=== PATIENT | female | born 1960 | race Caucasian/White ===

== ENCOUNTER 2025-04-25 21:09 | Emergency (ER) | payer OTHER, SELFPAY ==
[2025-04-25 21:16] VITALS: BP 156/82
--- NOTE | 2025-04-25 22:12 | ED.MUSCINJ ---
HPI-Injury
General
Chief Complaint: Musculo-Skeletal Complaint
Source: patient
Exam Limitations: none
Time Seen by Provider: 04/25/25 22:06
Nursing documentation reviewed up to this point in time: agreed with
History of Present Illness-Injury
Is this injury a work related problem?: No
Is pt an associate of [facility]/[place]?: No
Initial Injury comments:
64-year-old female inversion injury to her right ankle felt a pop, no blood thinners
She believes she hit her head on the grass, no headache no loss conscious no neck pain no paresthesias no blood thinners no alcohol
Past History
Past History
ED Past Medical History: None
Social History
Tobacco: Non-smoker
Alcohol: None
Drug: None
Living: with family
Employment: Employed
Review of Systems
Review of Systems
All Other Systems: Not applicable
Constitutional: Denies fever or fatigue
EENT: Reports no symptoms
Respiratory: Reports no symptoms
Cardiac: Reports no symptoms
ABD/GI: Reports no symptoms
Musculoskeletal: Reports joint pain
Neurological: Denies dizzy, headache or numbness
Phy Exam
Physical Exam
Physical Exam:
Physical Exam
General: no apparent distress, not acutely ill
Neck: No posterior neck pain no tongue bite
Lungs: no acute respiratory distress. clear bilaterally
Neuro: alert and oriented. no focal neurological deficits
Skin: no rash
Psychiatric: well kept. interactive and cooperative
Extremities: Tender at the right lateral malleolus no fibular head tenderness base of the fifth nontender Achilles intact
Injury Course
Orders/Labs/Results
Orders:
Orders
04/25/25 21:23
Ankle, Right 3 view CR [CR Ankle - Right Min 3 Views *] Urgent
Comment:
Reason For Exam: right ankle injury
04/25/25 22:12
Crutches-Treatment ONCE
Splints/Slings/Crut- Treatment ONCE
Ibuprofen [Motrin] 600 mg PO NOW STA
Oxycodone/Acetaminophen [Percocet 5/325] 1 tablet PO NOW STA
MDM/Problems Addressed
Differential Diagnosis Includes:
Sprain fracture dislocation
MDM/Problems Addressed:
Ankle pain
*Radiology
Radiology exam reviewed: preliminary read by ED provider
*Pulse Oximetry
SaO2: 98
Oxygen Mode of Delivery: Room air
Patient hypoxic: no
*Critical Care Note
Total Time (30-74mins, 75-104mins- exclusive of procedures): Not Applicable
Update Note
Update Note:
Update looks like an isolated fibular fracture, no tenderness over the proximal fibula no tenderness to the base of the fifth, will mobilize for analgesia follow-up orthopedics
ED Attending Note
-
Portions of this chart may have been created with voice recognition software.� Occasional wrong word or��sound alike� substitutions may have occurred due to the inherent limitations of voice recognition software.
Discharge Plan
Departure
Patient Disposition: Home (Routine Discharge)
Date of Disposition: 04/25/25
Time of Disposition: 22:15
Patient with high blood pressure during this ER visit?: No
Condition: Good
Discharge Problem:
Ankle fracture
Instructions: How to Use Crutches, Ankle Fracture (DC)
Prescriptions:
New
ibuprofen 600 mg tablet
600 mg PO Q6H PRN (Reason: Pain) Qty: 20 0RF
oxycodone-acetaminophen [Percocet] 5-325 mg tablet
1 tab PO Q6HPRN PRN (Reason: pain) Qty: 14 0RF
Referrals:
Vazquez Lizama MD [Active, Orthopedics] - Next open appointment
Interventions
Interventions:
*Risk Screen - Suicide Last Done: 04/25/25 21:16
*General Assessment Last Done: 04/25/25 21:16
*Neglect/Abuse Screening Last Done: 04/25/25 21:16
Discharge Date and Time
Print Language: DOMINICAN
[2025-04-25] MEDS: PERCOCET 5/325 1 TABLET PO ×2 (22:24→23:35)
[2025-04-25] MEDS: MOTRIN 600 MG PO (22:24)
== END 2025-04-25 23:40 | disposition home or self-care (01) ==
LOC: EMR 21:09
PROVIDERS: EMERGENCY PHYSICIAN Emergency Medicine
DX: S82.831A Other fracture of upper and lower end of right fibula, initial encounter for closed fracture (principal); X50.1XXA Overexertion from prolonged static or awkward postures, initial encounter
CPT/HCPCS: 99283; 73610